=== PATIENT | male | born 1980 | race Caucasian/White ===

== ENCOUNTER 2018-03-19 15:51 | Emergency (ER) | payer BC ==
[~2018-03-19 15:51] MED LIST: CYCL10TA29 PO; ESOM10SU2 PO; HYDR-653 PO; IBUP800T37 PO; RANI150C17 PO
--- NOTE | 2018-03-19 15:57 | ER Report ---
History and Physical Time Seen By MD: 15:57 HPI/ROS CHIEF COMPLAINT: L flank pain HISTORY OF PRESENT ILLNESS: PT started with L flank pain at 230pm today while urinating. PT said it came on suddenly and is 10/. Pt has a hx of kidney stone in 2005 but states this feels more painful but in similar location. Had no dysuria. no fevers. Pt had two old hydrocodones so to both and sat on couch. Pain did not improve so came to ed. Pt c/o of nauesea. no vomiting. Pt unable to get comfortable. PRior kidney stone passed on its own. REVIEW OF SYSTEMS: Constitutional: No fever, no chills. Eyes: No discharge. ENT: No sore throat. Cardiovascular: No chest pain, no palpitations. Respiratory: No cough, no shortness of breath. Gastrointestinal: No abdominal pain, no vomiting. Genitourinary: No hematuria. Musculoskeletal: + back pain. Skin: No rashes. Neurological: No headache. Allergies: Coded Allergies: Penicillins (Verified Allergy, Severe, UNKNOWN, 03/19/18) meperidine (Verified Allergy, Severe, HALLUCINATIONS, 03/19/18) Home Meds Active Scripts Cyclobenzaprine Hcl (CYCLOBENZAPRINE HCL) 10 Mg Tablet, 10 MG PO TID PRN for MUSCLE SPASMS, #15 TAB Prov:LYDIA JOYCE 03/02/15 Discontinued Reported Medications Ibuprofen (IBUPROFEN) 800 Mg Tablet, 1 TAB PO Q2H, TAB 03/02/15 Ranitidine Hcl (RANITIDINE HCL) 150 Mg Capsule, 150 MG PO QDAY, CAPSULE 03/02/15 Esomeprazole Magnesium (NEXIUM) 10 Mg Suspdr.pkt, 1 TAB PO QDAY, TAB 03/02/15 Discontinued Scripts Hydrocodone Bit/Acetaminophen (NORCO 5-325 TABLET) 1 Each Tablet, 1 EACH PO Q4- 6H PRN for PAIN, #12 TAB Prov:LYDIA JOYCE 03/02/15 Past Medical/Surgical History pmhx: Kidney stones, "broken back" Pshx: lumbar fusion Reviewed Nurses Notes: Yes Old Medical Records Reviewed: Yes Hx Smoking: No Smoking Status: Never Smoker Hx Substance Use Disorder: No Hx Alcohol Use: No Constitutional Vital Sign - Last 24 Hours 03/19/18 03/19/18 03/19/18 03/19/18 15:51 16:04 16:10 16:21 Pulse 111 111 92 Resp 22 B/P (MAP) 143/116 (125) 149/116 Pulse Ox 90 95 90 O2 Delivery Room Air Room Air Room Air 03/19/18 03/19/18 03/19/18 03/19/18 16:26 16:30 16:56 17:00 Pulse 92 120 B/P (MAP) 125/82 (96) 135/82 (99) Pulse Ox 93 94 O2 Delivery Room Air Room Air Physical Exam General Appearance: The patient is alert, has no immediate need for airway protection and no signs of toxicity. Eyes: Pupils equal and round no pallor or injection, EOMI ENT: no pharyngeal erythema or exudates, Mucous membranes are moist Respiratory: There are no retractions, lungs are clear to auscultation. Cardiovascular: Regular rate and rhythm. pulses are equal and symmetrical Gastrointestinal: Abdomen is soft and non tender, no masses, bowel sounds normal, no guarding, no rigidity or rebound Neurological: Cranial nerves II-XII grossly intact, no sensory or motor loss Skin: Warm and dry, no rashes. Musculoskeletal: Neck is supple non tender, no vertebral tenderness, L flank pain Extremities are non tender, nonswollen and have full range of motion. DIFFERENTIAL DIAGNOSIS: After history and physical exam differential diagnosis was considered for kidney stone Medical Decision Making Data Points Result Diagram: 03/19/18 1604 Laboratory Hematology Test 03/19/18 16:04 Sodium Level 141 mmol/L (137-145) Potassium Level 3.6 mmol/L (3.5-5.0) Chloride Level 111 mmol/L (98-107) Carbon Dioxide Level 22 mmol/L (22-30) Blood Urea Nitrogen 18 mg/dl (9-21) Creatinine 1.20 mg/dl (0.66-1.25) Glomerular Filtration Rate Calc > 60.0 Random Glucose 104 mg/dl (75-110) Calcium Level 10.0 mg/dl (8.4-10.2) Chemistry Test 03/19/18 16:04 Glomerular Filtration Rate Calc > 60.0 Calcium Level 10.0 mg/dl (8.4-10.2) EKG/Imaging Imaging 9 x7x 8mm kidney stone ED Course/Re-evaluation ED Course CT for stone location and size 03/19/2018 5:39:[address] Schmitt, urologist. Reviewed the CT and pt information. States if pt is comfortable he can go home. He can see him in office tomorrow to discuss procedure for Friday to remove stone. Spoke with pt and pt can see him tomorrow but is unable to have a procedure to to [facility] interview on Friday but will discuss alternative time with urologist tomorrow. Decision to Disposition Date: Mar 19, 2018 Decision to Disposition Time: 17:40 Depart Departure Latest Vital Signs Vital Signs Date Time Temp Pulse Resp B/P (MAP) Pulse Ox O2 Delivery O2 Flow Rate FiO2 03/19/18 17:00 135/82 (99) 03/19/18 16:56 120 94 Room Air 03/19/18 16:10 22 Impression: Primary Impression: Kidney stone on left side Condition: Improved Disposition: HOME OR SELF-CARE Referrals: SHAHNAZ HENDRICKS PA-C (PCP) BANDAR SCHMITT MD New Scripts Ondansetron 4 Mg Odt (ONDANSETRON 4 MG ODT) 4 Mg Tab.rapdis 4 MG PO Q6-8H PRN for NAUSEA/VOMITING, #15 TAB Prov: BERNARDO HERNANDEZ V DO 03/19/18 Tamsulosin Hcl (FLOMAX) 0.4 Mg Cap.er.24h 0.4 MG PO DAILY for 5 Days, #5 CAP start 03/20/2018 Prov: BERNARDO HERNANDEZ V DO 03/19/18 Departure Forms: ER Transition Record, Medications Reconciliation, Patient Portal Information Patient Instructions: Kidney Stones (ED) Additional Instructions: I spoke with Dr. Schmitt, urology, who would like you to call his office tomorrow at 8:30 am to arrange a time to be seen tomorrow. You have a large (9 x8x7mm) stone in your distal ureter which will most likely need a procedure to pass. Percocet 1-2 every 4 hours as needed for pain. Flomax once a day. zofran one every 6 hours as needed for nausea If pain is uncontrolled by the percocet or if you are vomiting and unable to take the percocet then please return to the emergency room. BERNARDO HERNANDEZ DO Mar 19, 2018 15:57
[2018-03-19] MEDS ORDERED: HYDROMORPHONE HCL 1 MG/ML SYRINGE IVP ONE ×2 (16:00→16:50)
--- NOTE | 2018-03-19 16:41 | RADIOLOGY IMAGING REPORT ---
FACILITY: [facility] PATIENT NAME: Dino Paiz : 1980 MR: [id number] V: [id number] EXAM DATE: ORDERING PHYSICIAN: BERNARDO HERNANDEZ TECHNOLOGIST: [facility] Patient: Dino Paiz : 1980 Visit/Account:[id number] Date of Sevice: 03/19/2018 EXAMINATION: CT abdomen without IV contrast CT pelvis without IV contrast HISTORY: Left flank pain. COMPARISON: None. TECHNIQUE: Axial images were taken through the abdomen and pelvis without intravenous contrast. Sag ittal and coronal reformatted images are also submitted. One of the following dose optimization techniques was utilized in the performance of this exam: Autom ated exposure control; adjustment of the mA and/or kV according to the patient's size; or use of an i terative reconstruction technique. Specific details can be referenced in the facility's radiology C T exam operational policy. FINDINGS: Please note that without intravenous contrast, sensitivity to detection of parenchymal disease is mullen ited. Liver/biliary: Status post cholecystectomy. The liver is unremarkable. Pancreas: Negative. Spleen: Negative. Adrenal glands: Negative. Kidneys: Calculus in the distal left ureter measuring 9 x 8 x 7 mm. No hydronephrosis. Pelvic structures: Negative. Bowel: Colonic diverticulosis without evidence of diverticulitis. Normal appendix. Peritoneum/retroperitoneum/mesenteries: No intraperitoneal free air or free fluid. Vessels: Negative. Musculoskeletal/body wall: Posterior fusion hardware in the thoracic spine is partially visualized. M ild multilevel disc degenerative changes in the lumbar spine. Lymph node assessment: Negative. Lower chest: Negative. IMPRESSION: Calculus in the distal left ureter measuring 9 x 8 x 7 mm. No hydronephrosis. Report Dictated By: Giovanni Melgoza MD at 03/19/2018 4:25 PM Report E-Signed By: Giovanni Melgoza MD at 03/19/2018 4:36 PM WSN:[id number]
[2018-03-19 17:20] LABS: PLATELET COUNT, AUTOMATED 305 K/uL (150-450)
[2018-03-19] MEDS ORDERED: KETOROLAC 30 MG/ML VIAL IVP ONE (17:40)
[2018-03-19] MEDS ORDERED: TAMSULOSIN HCL 0.4 MG CAP PO ONE (17:40)
[2018-03-19] MEDS ORDERED: OXYC-373 PO (17:47)
[2018-03-19] MEDS ORDERED: TAMS0.4C25 PO (17:47)
[2018-03-19] MEDS ORDERED: ONDA4TAB9 PO (17:47)
[2018-03-19 18:00] VITALS: BP 115/72
[2018-03-23] MEDS ORDERED: CYCL-277 PO (14:53)
[2018-03-23] MEDS ORDERED: SERT25TA90 PO (14:53)
== END 2018-03-19 18:18 | disposition home or self-care (01) ==
LOC: ER 16:40
DX: N20.1 Calculus of ureter (principal)
CPT/HCPCS: 74176; 85025; 96374; 96375; 96376; 99284; J1170; J1885; 82310; 82374; 82435; 82565; 82947; 84132; 84295; 84520

== ENCOUNTER 2018-03-26 00:55 | Day surgery (SDC) | payer BC ==
[~2018-03-26] VITALS: Ht 195.6 cm; Wt 118.8 kg
[~2018-03-26 00:55] MED LIST changes: +CYCL-277 PO; +ONDA4TAB9 PO; +OXYC-373 PO; +SERT25TA90 PO; +TAMS0.4C25 PO
[2018-03-26 07:53] VITALS: BP 132/90
[2018-03-26] MEDS ORDERED: fentaNYL CITR 250 MCG/5 ML AMP ONE (08:12)
[2018-03-26] MEDS ORDERED: LIDOCAINE 2% IV 100 MG/5ML SYR ONE (08:13)
[2018-03-26] MEDS ORDERED: PROPOFOL EMUL(*) 10MG/ML 20 ML 20 ML ONE (08:14)
[2018-03-26] MEDS ORDERED: LEVOFLOXACIN/D5W*500 MG/100 ML 100 ML IVPB ONE (08:40)
[2018-03-26] MEDS ORDERED: FAMOTIDINE 20 MG TAB PO ONE (08:40)
[2018-03-26] MEDS ORDERED: LIDOCAINE/SOD BICARB 8.4% SYR ID ONE (08:40)
[2018-03-26] MEDS ORDERED: MIDAZOLAM 2 MG/2 ML VIAL IVP PRN (08:40)
[2018-03-26] MEDS ORDERED: NORMOSOL R SOLN(*) 1000 ML BAG 1,000 ML IV PRN (08:40)
[2018-03-26] MEDS ORDERED: DEXAMETHASONE SOD 4 MG/ML VIAL ONE (09:27)
[2018-03-26] MEDS ORDERED: ONDANSETRON 4 MG/2 ML VIAL ONE (09:27)
[2018-03-26] MEDS ORDERED: KETOROLAC 30 MG/ML VIAL ONE (09:27)
[2018-03-26] MEDS ORDERED: BELLADONNA ALK/OPIUM 60MG SUPP PR ONE (09:42)
[2018-03-26] MEDS ORDERED: fentaNYL CITR 100 MCG/2 ML AMP ONE (10:40)
--- NOTE | 2018-03-26 10:40 | Urology Discharge Summary ---
Discharge Summary Reason for Hosp/Final Diag: (1) Kidney stone on left side *Optional Permanent Comment*: Status post left ureteroscopic laser lithotripsy stone extraction stent placement Last Edited By: Bandar Schmitt MD on Mar 26, 2018 10:39 Status: Resolved Departure Weight (Pounds): 262 Condition: Improved Discharge: Home Time Spent: < 30 min Discharge Instructions Home Meds Active Scripts Ondansetron 4 Mg Odt (ONDANSETRON 4 MG ODT) 4 Mg Tab.rapdis, 4 MG PO Q6-8H PRN for NAUSEA/VOMITING, #15 TAB Prov:IRISFOZIABERNARDO V DO 03/19/18 Tamsulosin Hcl (FLOMAX) 0.4 Mg Cap.er.24h, 0.4 MG PO DAILY for 5 Days, #5 CAP start 03/20/2018 Prov:IRISFOZIABERNARDO Tiffany EMMANUEL 03/19/18 Reported Medications Oxycodone Hcl/Acetaminophen (PERCOCET 5-325 MG TABLET) 1 Each Tablet, 1 EACH PO Q4-6H PRN for PAIN, #12 TAB 03/26/18 Sertraline Hcl (SERTRALINE HCL) 25 Mg Tablet, 1 TAB PO BID, TAB 03/23/18 Cyclobenzaprine Hcl (CYCLOBENZAPRINE HCL) 5 Mg Tablet, 10 MG PO BID PRN for PAIN, #18 TAB 03/23/18 Discontinued Reported Medications Ibuprofen (IBUPROFEN) 800 Mg Tablet, 1 TAB PO Q2H, TAB 03/02/15 Ranitidine Hcl (RANITIDINE HCL) 150 Mg Capsule, 150 MG PO QDAY, CAPSULE 03/02/15 Esomeprazole Magnesium (NEXIUM) 10 Mg Suspdr.pkt, 1 TAB PO QDAY, TAB 03/02/15 Discontinued Scripts Oxycodone Hcl/Acetaminophen (OXYCODONE-ACETAMINOPHEN 5-325) 1 Each Tablet, 1 EACH PO Q4-6H PRN for PAIN, #30 TAB Prov:DAVIDBERNARDO Tiffany EMMANUEL 03/19/18 Cyclobenzaprine Hcl (CYCLOBENZAPRINE HCL) 10 Mg Tablet, 10 MG PO TID PRN for MUSCLE SPASMS, #15 TAB Prov:LYDIA JOYCE TECHNOLOGIST INFECTIOUS DISEASE 03/02/15 Hydrocodone Bit/Acetaminophen (NORCO 5-325 TABLET) 1 Each Tablet, 1 EACH PO Q4-6 H PRN for PAIN, #12 TAB Prov:LYDIA JOYCE TECHNOLOGIST INFECTIOUS DISEASE 03/02/15 Special Instructions: Expect to have blood in the urine, frequent urge to urinate, pain in the left flank with urination. Try not to pull out the stent by accident Call me for any problems or concerns [phone] Venous Thromboembolism Antithrombotics Is Pt On Any Antithrombotics?: No BANDAR SCHMITT MD Mar 26, 2018 10:39
[2018-03-26] MEDS ORDERED: OXYC-865 PO (10:47)
--- NOTE | 2018-03-26 10:56 | RADIOLOGY IMAGING REPORT ---
FACILITY: [facility] PATIENT NAME: Dino Paiz : 1980 MR: [id number] V: [id number] EXAM DATE: ORDERING PHYSICIAN: BANDAR SCHMITT TECHNOLOGIST: Location: [facility] Patient: Dino Paiz : 1980 Visit/Account:[id number] Date of Sevice: 03/26/2018 C-ARM FLUORO 1 HR Indication: STENT PLACEMTENT Comparison: None. Findings: Intraoperative images are available, which demonstrated a left sided ureteral double-J sten t placed. Final image demonstrates good position. IMPRESSION: Left-sided ureteral double-J stent placement. Radiation dose: AK 5.80 mGy Report Dictated By: Christopher Roldan at 03/26/2018 10:51 AM Report E-Signed By: Christopher Roldan at 03/26/2018 10:52 AM WSN:[email or web address]
[2018-03-26 11:26] VITALS: BP 114/72
[2018-03-26 11:33] VITALS: BP 119/81
[2018-03-26 11:35] VITALS: BP 110/81
--- NOTE | 2018-03-26 12:18 | OPERATIVE REPORT 1 ---
EVENT DATE: March 26, 2018 SURGEON: Glen Cross MD ANESTHESIOLOGIST: Ger Goodrich MD ANESTHESIA: LMA/General. VICE PRESIDENT DIVERSITY: None. PREOPERATIVE DIAGNOSIS Left distal ureteral calculus. POSTOPERATIVE DIAGNOSIS Left distal ureteral calculus. PROCEDURE PERFORMED Left ureteroscopic laser lithotripsy, stone extraction and stent placement. DESCRIPTION OF PROCEDURE The patient was brought to the operating room and after the adequate induction of general anesthesia he was placed in the relaxed dorsal lithotomy position. Genitalia were scrubbed, prepped and draped in a sterile fashion, the bladder examined with the rigid cystoscope. No mucosal abnormalities were noted. The Sensor wire was advanced into the left ureteral orifice past the stone and up into the left renal pelvis. Its position was confirmed fluoroscopically. The rigid ureteroscope was then backloaded over the Sensor wire and advanced into the ureteral orifice. Here, the stone was identified in the distal ureter. Using the 365 Holmium laser fiber, the stone was thoroughly fragmented into innumerable pieces. Several of the larger pieces were recovered and sent for stone analysis. A 24 cm, 6-Swiss, double J stent was then positioned under cystoscopic and fluoroscopic guidance. The pull-out string was left in place and secured to the penis with a Tegaderm. A B and O suppository was administered. He was aroused from anesthesia and transported to PACU in stable condition. LIANNE
[2018-03-26] MEDS ORDERED: TAMS0.4C25 PO (12:43)
[2018-03-31] MEDS ORDERED: SULF1TAB24 PO (09:42)
[2018-03-31] MEDS ORDERED: KETO30CA16 IJ (12:19)
== END 2018-03-26 11:26 | disposition home or self-care (01) ==
LOC: OR 00:55
PROVIDERS: ATTEND Urology
DX: N20.1 Calculus of ureter (principal)
CPT/HCPCS: 52356; 76000; 82365; 88300; C1894; C2617; J1100; J1885; J1956; J2001; J2405; J2704; J3010

== ENCOUNTER → 2018-03-31 | Outpatient (CLI) | payer BC ==
[~2018-03-31] MED LIST changes: +KETO30CA16 IJ; +OXYC-865 PO; +SULF1TAB24 PO
--- NOTE | 2018-03-31 09:53 | RADIOLOGY IMAGING REPORT ---
FACILITY: [facility] [place] PATIENT NAME: Dion Paiz : 1980 MR: [id number] V: [id number] EXAM DATE: ORDERING PHYSICIAN: BANDAR SCHMITT TECHNOLOGIST: Location: [facility] [place] Patient: Dino Paiz : 1980 Visit/Account:[id number] Date of Sevice: 03/31/2018 KUB SINGLE VIEW ABDOMEN HISTORY: kidney stone Additional history: None COMPARISON: CT abdomen pelvis 03/19/2018 which demonstrated a 8 mm calculus lodged in the distal left ureter FINDINGS: There is been interval placement of a left ureteral stent. The moderately large stone in the distal left ureter is unchanged in position and overlies the stent. No stones are identified in the kidneys on the previous CT. The stent appears appropriately positioned. IMPRESSION: Interval placement of a left ureteral stent which appears well-positioned. The large stone in the di stal left ureter is unchanged in position. Report Dictated By: Adam Vergara MD at 03/31/2018 9:47 AM Report E-Signed By: Adam Vergara MD at 03/31/2018 9:49 AM WSN:[email or web address]
== END ==
LOC: RAD 08:41
PROVIDERS: ATTEND Urology
DX: N20.0 Calculus of kidney (principal); Z96.0 Presence of urogenital implants
CPT/HCPCS: 74018